=== PATIENT | female | born 1975 | race American Indian/Alaskan Native ===

== ENCOUNTER 2019-09-12 13:28 | Emergency (ER) | payer SELFPAY ==
[2019-09-12 13:43] VITALS: BP 135/102
== END 2019-09-12 20:40 | disposition left against medical advice (07) ==
LOC: ED 13:28
DX: R07.89 Other chest pain (principal); Z53.21 Procedure and treatment not carried out due to patient leaving prior to being seen by health care provider

== ENCOUNTER 2019-12-15 10:49 | Emergency (ER) | payer MEDICARE ==
[2019-12-15 11:02] VITALS: BP 135/87
[2019-12-15] MEDS ORDERED: IBUPROFEN 800 MG TAB PO ONE (11:29)
--- NOTE | 2019-12-15 12:19 | Emergency Department Report ---
Upper Extremity - [facility] Chief Complaint: Extremity Injury, Upper Stated Complaint: RT ARM PAIN/X 1 WEEK Time Seen by Provider: 12/15/19 11:28 Upper Extremity: Right Shoulder Occurred When: >5 Days Mechanism: Other (known) Severity: severe Other History: 44-year old obese female that not in acute distress nontoxic in appearance presents to the emergency room for right upper arm and shoulder pain for 1 week. Patient reports there is pain in the right shoulder when she lifts her arm up. Patient denies any trauma. Patient reports she has not taken any pain medication. Patient reports a past medical history of hypertension bipolar, panic and anxiety attacks. As well as seasonal allergies. Patient reports that she takes amlodipine Depakote and Seroquel. ED Review of Systems ROS: Stated complaint: RT ARM PAIN/X 1 WEEK Other details as noted in HPI ED Past Medical Hx - Past Medical History Hx Hypertension: Yes Hx Psychiatric Treatment: (anxiety) Additional medical history: bronchitis, sinusitis - Surgical History Additional Surgical History: breast reduction. Partial hysterectomy - Social History Smoking Status: Current Every Day Smoker - Medications Home Medications: Home Medications Medication Instructions Recorded Confirmed Last Taken Type HYDROcodone/APAP 5-325 [[place] 1 each PO Q6HR PRN #12 tablet 03/31/14 Unknown Rx 5-325 mg TAB] cloNIDine [Catapres] 0.2 mg PO QHS #30 tablet 03/31/14 Unknown Rx raNITIdine HCL [Ranitidine] 150 mg PO Q12H #30 tablet 03/31/14 Unknown Rx HYDROcodone/APAP 5-325 [[place] 1 each PO Q6HR PRN #15 tablet 11/23/14 Unknown Rx 5/325] Sulfamethoxazole/Trimethoprim 1 each PO BID #14 tablet 11/23/14 Unknown Rx [Bactrim Ds] amLODIPine 10 mg PO DAILY #30 tab 11/23/14 Unknown Rx lisinopriL [Zestril TAB] 20 mg PO QDAY #30 tablet 11/23/14 Unknown Rx Sulfamethoxazole/Trimethoprim 1 each PO BID #10 tablet 07/10/15 Unknown Rx [Bactrim DS TAB] traMADoL [Ultram] 50 mg PO Q8H PRN #15 tablet 07/10/15 Unknown Rx traMADoL [Ultram 50 MG tab] 50 mg PO Q6HR PRN #20 tablet 10/02/15 Unknown Rx traMADoL [Ultram 50 MG tab] 50 mg PO Q4HR PRN #12 tablet 12/15/19 Unknown Rx Upper Extremity Exam - Exam General: Vital signs noted. No distress. Alert and acting appropriately. Head and Torso: No HEENT Abnormality, No Neck Tenderness, No Chest/Lungs Abnormality, No Abdominal Tenderness, No Back Tenderness Shoulder Exam: Yes Shoulder Tenderness (Scapular tenderness), Yes Normal Range of Motion in Shoulder, Yes AC Joint Tenderness, No Clavicle Tenderness, No Shoulder Deformity Arm Exam: Yes Arm/Humerus Tenderness, No Arm Deformity Elbow: No Elbow Tenderness, No Normal Range of Motion in Elbow, No Elbow Deformity Forearm: No Forearm Tenderness, No Forearm Deformity, No Pain with Pronation, No Pain with Supination Wrist: Yes Normal ROM in Wrist, No Wrist Tenderness, No Wrist Deformity, No Snuffbox Tenderness, No Pain with Axial Thumb Compression CMS Exam: No Broken Skin, No Normal Distal Pulses, No Normal Capillary Refill, No Normal Distal Sensation ED Course Vital Signs 12/15/19 12/15/19 10:58 11:32 Temperature 98.1 F Pulse Rate 92 H Respiratory 16 18 Rate Blood Pressure 135/87 O2 Sat by Pulse 98 Oximetry ED Medical Decision Making - Medical Decision Making 44-year old obese female that not in acute distress nontoxic in appearance presents to the emergency room for right upper arm and shoulder pain for 1 week. Patient reports there is pain in the right shoulder when she lifts her arm up. Patient denies any trauma. Patient reports she has not taken any pain medication. Patient reports a past medical history of hypertension bipolar, panic and anxiety attacks. As well as seasonal allergies. Patient reports that she takes amlodipine Depakote and Seroquel. Patient given pain medication discussed with her to follow-up with a orthopedic provider. She can take [id number] ibuprofen or Tylenol for pain management. Critical care attestation.: If time is entered above; I have spent that time in minutes in the direct care of this critically ill patient, excluding procedure time. ED Disposition Clinical Impression: Pain of right scapula, Shoulder pain, right, Obesity (BMI 30-39.9), Bipolar 2 disorder Disposition: - TO HOME OR SELFCARE Is pt being admited?: No Does the pt Need Aspirin: No Condition: Stable Instructions: Chest Pain (ED), Arthralgia (ED), Obesity (ED) Additional Instructions: Take pain medication as prescribed. Follow-up with your primary care provider if his symptoms persist or gets worse. I also recommend for you to follow-up with an orthopedic provider. Prescriptions: traMADoL [Ultram 50 MG tab] 50 mg PO Q4HR PRN #12 tablet PRN Reason: Pain Referrals: Your,Primary Care Provider [Other] - 3-5 Days FRANCISCO LUO MD [Staff Physician] - 3-5 Days
== END 2019-12-15 12:32 | disposition home or self-care (01) ==
LOC: ED 10:49
DX: M25.511 Pain in right shoulder (principal); E66.9 Obesity, unspecified; F31.9 Bipolar disorder, unspecified; I10 Essential (primary) hypertension; Z68.30 Body mass index [BMI] 30.0-30.9, adult; F17.200 Nicotine dependence, unspecified, uncomplicated; Z98.890 Other specified postprocedural states; Z79.899 Other long term (current) drug therapy; Z91.018 Allergy to other foods
CPT/HCPCS: 99282

== ENCOUNTER 2021-08-25 10:33 | Emergency (ER) | payer MEDICARE ==
[2021-08-25 11:41] LABS: Basophils % (Auto) 0.9 % (0.0-1.8); Eosinophils # (Auto) 0.1 K/mm3 (0.0-0.4); Eosinophils % (Auto) 2.8 % (0.0-4.3); Hematocrit 42.5 % (30.3-42.9); Hemoglobin 13.6 gm/dl (10.1-14.3); Lymphocytes # (Auto) 1.6 K/mm3 (1.2-5.4); Mean Corpuscular HGB Conc 32 % (30-34); Mean Corpuscular Volume 94 fl (79-97); Monocytes # (Auto) 0.3 K/mm3 (0.0-0.8); Monocytes % (Auto) 6.1 % (0.0-7.3); Platelet Count 297 K/mm3 (140-440); Red Blood Count 4.52 M/mm3 (3.65-5.03); Red Cell Distribution Width 13.9 % (13.2-15.2)
[2021-08-25 11:49] LABS: INR 0.88 (0.87-1.13)
--- NOTE | 2021-08-25 11:51 | XRay Report ---
XR chest routine 2V INDICATION / CLINICAL INFORMATION: Dyspnea. COMPARISON: None available. FINDINGS: SUPPORT DEVICES: None. HEART /PULMONARY VASCULATURE: No significant abnormality. LUNGS / PLEURA: No significant pulmonary or pleural abnormality. No pneumothorax. ADDITIONAL FINDINGS: No significant additional findings. IMPRESSION: 1. No acute findings. Signer Name: Jermain Wang MD Signed: 08/25/2021 11:47 AM Workstation Name: [id number]
[2021-08-25 12:06] LABS: Creatine Kinase MB 1.4 ng/mL (0.0-4.0)
[2021-08-25 12:08] LABS: Alanine Aminotransferase 13 units/L (7-56); Albumin 4.1 g/dL (3.9-5); BUN/Creatinine Ratio 10; Blood Urea Nitrogen 8 mg/dL (7-17); Calcium 8.8 mg/dL (8.4-10.2); Hemolysis Index 6
[2021-08-25] MEDS ORDERED: cloNIDine 0.1 MG TAB PO ONE (12:10)
--- NOTE | 2021-08-25 12:12 | Emergency Department Report ---
ED General Adult HPI - General Chief complaint: Dyspnea/Respdistress Stated complaint: CHEST PAIN/SOB Time Seen by Provider: 08/25/21 10:58 Source: patient Mode of arrival: Ambulatory Limitations: No Limitations - History of Present Illness Initial comments: elevated BP , neuropathy and SOB for many weeks , no chets pain, ran out of meds, -: Gradual, week(s) Severity scale (0 -10): 5 Consistency: intermittent Improves with: none - Related Data Previous Rx's Medication Instructions Recorded Last Taken Type HYDROcodone/APAP 5-325 [[place] 1 each PO Q6HR PRN #12 tablet 03/31/14 Unknown Rx 5-325 mg TAB] cloNIDine [Catapres] 0.2 mg PO QHS #30 tablet 03/31/14 Unknown Rx raNITIdine HCL [Ranitidine] 150 mg PO Q12H #30 tablet 03/31/14 Unknown Rx HYDROcodone/APAP 5-325 [[place] 1 each PO Q6HR PRN #15 tablet 11/23/14 Unknown Rx 5/325] Sulfamethoxazole/Trimethoprim 1 each PO BID #14 tablet 11/23/14 Unknown Rx [Bactrim Ds] amLODIPine 10 mg PO DAILY #30 tab 11/23/14 Unknown Rx lisinopriL [Zestril TAB] 20 mg PO QDAY #30 tablet 11/23/14 Unknown Rx Sulfamethoxazole/Trimethoprim 1 each PO BID #10 tablet 07/10/15 Unknown Rx [Bactrim DS TAB] traMADoL [Ultram] 50 mg PO Q8H PRN #15 tablet 07/10/15 Unknown Rx traMADoL [Ultram 50 MG tab] 50 mg PO Q6HR PRN #20 tablet 10/02/15 Unknown Rx traMADoL [Ultram 50 MG tab] 50 mg PO Q4HR PRN #12 tablet 12/15/19 Unknown Rx Allergies Allergy/AdvReac Type Severity Reaction Status Date / Time No Known Allergies Allergy Verified 08/25/21 11:28 ED Review of Systems ROS: Stated complaint: CHEST PAIN/SOB Other details as noted in HPI Constitutional: denies: chills, fever Eyes: denies: eye pain, eye discharge, vision change ENT: denies: ear pain, throat pain Respiratory: denies: cough, shortness of breath, wheezing Cardiovascular: denies: chest pain, palpitations Endocrine: no symptoms reported Gastrointestinal: denies: abdominal pain, nausea, diarrhea Genitourinary: denies: urgency, dysuria, discharge Musculoskeletal: denies: back pain, joint swelling, arthralgia Skin: denies: rash, lesions Neurological: denies: headache, weakness, paresthesias Psychiatric: denies: anxiety, depression Hematological/Lymphatic: denies: easy bleeding, easy bruising ED Past Medical Hx - Past Medical History Hx Hypertension: Yes Hx Psychiatric Treatment: (anxiety) Additional medical history: bronchitis, sinusitis - Surgical History Additional Surgical History: breast reduction. Partial hysterectomy - Social History Smoking Status: Current Every Day Smoker - Medications Home Medications: Home Medications Medication Instructions Recorded Confirmed Last Taken Type HYDROcodone/APAP 5-325 [[place] 1 each PO Q6HR PRN #12 tablet 03/31/14 08/25/21 Unknown Rx 5-325 mg TAB] cloNIDine [Catapres] 0.2 mg PO QHS #30 tablet 03/31/14 08/25/21 Unknown Rx raNITIdine HCL [Ranitidine] 150 mg PO Q12H #30 tablet 03/31/14 08/25/21 Unknown Rx HYDROcodone/APAP 5-325 [[place] 1 each PO Q6HR PRN #15 tablet 11/23/14 08/25/21 Unknown Rx 5/325] Sulfamethoxazole/Trimethoprim 1 each PO BID #14 tablet 11/23/14 08/25/21 Unknown Rx [Bactrim Ds] amLODIPine 10 mg PO DAILY #30 tab 11/23/14 08/25/21 Unknown Rx lisinopriL [Zestril TAB] 20 mg PO QDAY #30 tablet 11/23/14 08/25/21 Unknown Rx Sulfamethoxazole/Trimethoprim 1 each PO BID #10 tablet 07/10/15 08/25/21 Unknown Rx [Bactrim DS TAB] traMADoL [Ultram] 50 mg PO Q8H PRN #15 tablet 07/10/15 08/25/21 Unknown Rx traMADoL [Ultram 50 MG tab] 50 mg PO Q6HR PRN #20 tablet 10/02/15 08/25/21 Unknown Rx traMADoL [Ultram 50 MG tab] 50 mg PO Q4HR PRN #12 tablet 12/15/19 08/25/21 Unknown Rx ED Physical Exam - General Limitations: No Limitations General appearance: alert, in no apparent distress - Head Head exam: Present: atraumatic, normocephalic - Eye Eye exam: Present: normal appearance - ENT ENT exam: Present: mucous membranes moist - Neck Neck exam: Present: normal inspection - Respiratory Respiratory exam: Present: normal lung sounds bilaterally. Absent: respiratory distress - Cardiovascular Cardiovascular Exam: Present: regular rate, normal rhythm. Absent: systolic murmur, diastolic murmur, rubs, gallop - GI/Abdominal GI/Abdominal exam: Present: soft, normal bowel sounds - Extremities Exam Extremities exam: Present: normal inspection - Back Exam Back exam: Present: normal inspection - Neurological Exam Neurological exam: Present: alert, oriented X3 - Psychiatric Psychiatric exam: Present: normal affect, normal mood - Skin Skin exam: Present: warm, dry, intact, normal color. Absent: rash ED Course Vital Signs 08/25/21 08/25/21 08/25/21 10:40 11:26 11:27 Temperature 98.1 F 99.0 F Pulse Rate 89 87 Respiratory 18 20 Rate Blood Pressure 179/110 Blood Pressure 180/112 [Left] O2 Sat by Pulse 100 99 99 Oximetry - Reevaluation(s) Reevaluation #1: 08/25/21 12:12 work up neg , vss , clonidne given for BP , dimer negative clear x ray will refill meds ED Medical Decision Making - Lab Data Result diagrams: 08/25/21 11:14 08/25/21 11:14 Critical care attestation.: If time is entered above; I have spent that time in minutes in the direct care of this critically ill patient, excluding procedure time. ED Disposition Clinical Impression: Uncontrolled hypertension Disposition: HOME / SELF CARE / HOMELESS Is pt being admited?: No Does the pt Need Aspirin: No Condition: Stable Instructions: Hypertension (ED) Referrals: PRIMARY CARE, [Primary Care Provider] - 3-5 Days
[2021-08-25 12:22] VITALS: BP 171/102
--- NOTE | 2021-08-28 09:17 | Electrocardiograph Report ---
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
== END 2021-08-25 12:23 | disposition home or self-care (01) ==
LOC: ED 10:33
DX: I10 Essential (primary) hypertension (principal); F17.200 Nicotine dependence, unspecified, uncomplicated; F41.9 Anxiety disorder, unspecified
CPT/HCPCS: 36415; 71046; 80053; 82550; 82553; 83690; 83735; 83880; 84484; 85025; 85379; 85610; 93005; 99283